=== PATIENT | female | born 1980 | race Caucasian/White ===

== ENCOUNTER 2022-04-01 09:49 | Emergency (ER) | payer OTHER ==
[~2022-04-01] VITALS: Ht 162.6 cm; Wt 136.1 kg
--- NOTE | 2022-04-01 09:53 | NUR ---
MD at bedside medical screening exam in progress.
[2022-04-01] MEDS ORDERED: ALBU6.7H9 INH (09:57)
[2022-04-01] MEDS ORDERED: HYDR25CA PO (09:57)
[2022-04-01] MEDS ORDERED: ACETAMINOPHEN 325 MG TABLET ONE (09:58)
[2022-04-01] MEDS ORDERED: ALPRAZOLAM 0.25 MG TABLET ONE (09:59)
[2022-04-01] MEDS ORDERED: GUAIFENESIN LA 600 MG TABLET.SA PO ONE ×2 (09:59→10:00)
[2022-04-01] MEDS ORDERED: ACETAMINOPHEN 325 MG TABLET PO ONE (10:00)
[2022-04-01] MEDS ORDERED: ALPRAZOLAM 0.25 MG TABLET PO ONE (10:00)
[2022-04-01 10:22] VITALS: BP 129/80
--- NOTE | 2022-04-01 10:22 | NUR ---
Patient discharged to home in stable condition. Written and verbal after care instructions given. Patient verbalizes understanding of instructions. Stressed follow up or return to ER for worsening s/s.
== END 2022-04-01 10:24 | disposition home or self-care (01) ==
LOC: ER 09:52
DX: U07.1 COVID-19 (principal); F41.0 Panic disorder [episodic paroxysmal anxiety]; I10 Essential (primary) hypertension; E11.9 Type 2 diabetes mellitus without complications; Z88.1 Allergy status to other antibiotic agents; G47.00 Insomnia, unspecified; G89.29 Other chronic pain; M54.9 Dorsalgia, unspecified
CPT/HCPCS: A4663